=== PATIENT | female | born 1970 | race Caucasian/White ===

== ENCOUNTER 2021-12-23 15:43 | Outpatient (REF) | payer OTHER, SELFPAY ==
[2021-12-24 11:46] LABS: H Pylori Breath Test Negative (Negative)
== END 2021-12-23 15:44 | disposition home or self-care (01) ==
LOC: HO.LNP 15:43
PROVIDERS: Visit Provider Nurse Practitioner Family
DX: E66.9 Obesity, unspecified (principal)
CPT/HCPCS: 83013

== ENCOUNTER 2022-09-02 07:25 | Day surgery (SDC) | payer OTHER, SELFPAY ==
[2022-07-08 08:48] VITALS: BMI 37.2
--- NOTE | 2022-07-12 12:59 | HO.ANESPROP2 ---
HPI - Anesthesia Eval Consult details Narrative: 52yo F for Colonoscopy Semiglutide for obesity, not DM PMFSH Active Problems Active Problems: All Active Problems (Updated 07/08/22 @ 08:48 by Beatris Bolivar RN) Obese (Acute) Hypertension (Acute) Colon cancer screening (Acute) Screening for diabetes mellitus (DM) (Acute) Screening for hypercholesterolemia (Acute) Screening for hypothyroidism (Acute) Annual physical exam (Acute) COVID-19 (Acute) Reactive airway disease (Acute) Past Medical History Medical History (Updated 07/08/22 @ 08:48 by Beatris Bolivar RN) HTN (hypertension) Reactive airway disease Family History Family History (Updated 04/07/22 @ 08:15 by Tom Rivera PA-C) Mother FH: HTN (hypertension) Father No problems noted. 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
--- NOTE | 2022-09-01 13:46 | P.CONAN_ITS ---
Documented by User: Soraya Louis NP 09/01/22 13:46 HPI - Anesthesia Eval Consult details Narrative: 52yo F for Colonoscopy PMFSH Active Problems Active Problems: All Active Problems (Updated 07/08/22 @ 08:48 by Beatris Bolivar RN) Obese (Acute) Hypertension (Acute) Colon cancer screening (Acute) Screening for diabetes mellitus (DM) (Acute) Screening for hypercholesterolemia (Acute) Screening for hypothyroidism (Acute) Annual physical exam (Acute) COVID-19 (Acute) Reactive airway disease (Acute) Past Medical History Medical History (Updated 07/08/22 @ 08:48 by Beatris Bolivar RN) HTN (hypertension) Reactive airway disease Family History Family History (Updated 04/07/22 @ 08:15 by Tom Rivera PA-C) Mother FH: HTN (hypertension) Father No problems noted. Paternal Grandmother Breast cancer Surgical History Surgical History No pertinent past surgical history Social History Social History (Updated 04/07/22 @ 08:15 by Tom Rivera PA-C) Housing: House Alcohol intake: never Patient Tobacco Use Status: Never used Tobacco e-Cigarette/Vaping Use: Never Used Second Hand Smoke Exposure: No Use of substances other than those prescribed or required for medical reasons: No Are you DNR?: No Advance Directives: No Advance Directives Information Provided: Yes Recently lost weight without trying: No Nutrition Risks: No Nutritional Risk service: No Current occupational status: employed 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 Cognitive needs: No Hearing needs: No Vision needs: No Meds Allergies Allergy/AdvReac Type Severity Reaction Status Date / Time No Known Allergies Allergy Verified 08/30/22 14:06 [No Known Allergies*] Exam Exam Date and Time: September 01, 2022 1346 Height,Weight and Vital Signs: Height 5 ft 3 in Weight 95.254 kg Assessment and Plan Assessment Anesthesia Assessment: Chart Reviewed Documented by User: Margarita Cooper MD 09/02/22 08:01 HPI - Anesthesia Eval Consult details Narrative: screening 52yo F for Colonoscopy PMFSH Past Medical History Medical History (Updated 07/08/22 @ 08:48 by Beatris Bolivar RN) HTN (hypertension) Reactive airway disease Family History Family History (Updated 04/07/22 @ 08:15 by Tom Rivera PA-C) Mother FH: HTN (hypertension) Father No problems noted. Paternal Grandmother Breast cancer Family history of problems with anesthesia: No Surgical History Surgical History No pertinent past surgical history History of Problems with Anesthesia: No Social History Social History (Updated 04/07/22 @ 08:15 by Tom Rivera PA-C) Housing: House Alcohol intake: never Patient Tobacco Use Status: Never used Tobacco e-Cigarette/Vaping Use: Never Used Second Hand Smoke Exposure: No Use of substances other than those prescribed or required for medical reasons: No Are you DNR?: No Advance Directives: No Advance Directives Information Provided: Yes Recently lost weight without trying: No Nutrition Risks: No Nutritional Risk service: No Current occupational status: employed 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 Cognitive needs: No Hearing needs: No Vision needs: No Meds Allergies Allergy/AdvReac Type Severity Reaction Status Date / Time No Known Allergies Allergy Verified 08/30/22 14:06 [No Known Allergies*] Exam Airway Mallampati Class: I TM Dist: >3cm Neck ROM: Full Heart: rr Lungs: cta Assessment and Plan Assessment Anesthesia Assessment: Anesthesia Plan Discussed Final Anesthetic Review Family History of Problems with Anesthesia: No History of Problems with Anesthesia: No NPO: Yes ASA Class: II Final Preanesthetic Review: No Changes in Pt Med Stat, Meds/Allgs Chart Reviewed, Consent Obtained/Reviewed and Anes Risks/Benef Reviewed Patient Risk: Low Procedure Risk: Low Anesthetic Plan Anesthetic Plan: MAC: Disposition: Standard PACU
[2022-09-02 07:43] VITALS: BMI 35.2
[2022-09-02 07:59] VITALS: BP 144/83; PULSE 81; RESP 16; TEMP 36.9; O2SAT 99
[2022-09-02 08:06] LABS: Urine Pregnancy NEGATIVE (NEGATIVE)
[2022-09-02 08:07] LABS: UPreg QC Valid YES
[2022-09-02] MEDS: Lactated Ringers 1,000 ML 100 ML IVCONT (08:13)
--- NOTE | 2022-09-02 08:28 | MHC.SHP ---
Pre-Procedural Eval Section A Date of Service: 09/02/22 Section B Chief Complaint: screening Relevant Family History (Specify if Yes): No Relevant Social History: None Present Medications: see Short Stay Collaborative assessment Medical History: Significant History (HTN, asthma, obesity) History of Previous Operations: No relevant previous surgery Allergies: Allergies Allergy/AdvReac Type Severity Reaction Status Date / Time No Known Allergies Allergy Verified 08/30/22 14:06 [No Known Allergies*] Review of Systems Sugical H&P ROS: Negative: Constitution, Cardiovascular, Respiratory, Neurological, Psychiatric, Hem-Onc, Allergic/Immunologic, Gastrointestinal, Genitourinary, Musculoskeletal, Integumentary, Endocrine and Eyes/Ears/Nose/Throat Exam Surgical H&P Exam: Normal: HEENT, Normal: Heart, Normal: Lungs, Normal: Extremities, Normal: Abdomen, Normal: Skin and Normal: Neurological Plan Diagnosis/Plan: Unchanged I have reviewed the history and physical and performed a pertinent physical examination on my patient. No changes have occurred unless specified. Time Spent With Patient Time: Total time managing care of this patient today ____ minutes.
--- NOTE | 2022-09-02 08:29 | W.PM.OPN ---
Operative Note Operative Note Date of Service: 09/02/22 Narrative: Operative Information Procedure Description: Colonoscopy Indication: screening Anesthesia: MAC COLONOSCOPY Instrument: Olympus variable stiffness pediatric scope 190L Colonoscopy Monitoring: Vital signs and clinical assessment, continuous EKG monitoring, Pulse oximetry, Carbon Dioxide monitoring and blood pressure monitoring were done throughout the procedure. Colon withdrawal time was 7 minutes. Procedure: The patient was placed in the left lateral decubitis position and pre-procedure medications were administered. After a digital rectal examination of the ano-rectum, the video colonoscope was inserted into the rectum and advanced through the colon to the cecum/TI. The colonoscope was slowly withdrawn in a retrograde panoramic fashion and the colon mucosa was carefully examined including a retroflexed view of the rectum. Findings and interventions are described below. Procedure Difficulty: easy Findings: Terminal Ileum-normal Cecum:normal Ascending Colon: normal Transverse Colon -normal Descending Colon:normal Sigmoid Colon: mild diverticulosis Rectum: Retroflexion with small internal hemorrhoids, grade I Anorectum - normal Colon preparation: [place] Bowel Preparation Scale Right colon; 2 Transverse colon: 2 Left colon; 3 (0 = Unprepared colon segment with mucosa not seen due to solid stool that cannot be cleared. 1 = Portion of mucosa of the colon segment seen, but other areas of the colon segment not well seen due to staining, residual stool and/or opaque liquid. 2 = Minor amount of residual staining, small fragments of stool and/or opaque liquid, but mucosa of colon segment seen well. 3 = Entire mucosa of colon segment seen well with no residual staining, small fragments of stool or opaque liquid) Impression and Post Procedure Diagnosis: internal hemorrhoids diverticular disease Plan: High fiber diet leaflet Avoid straining at stool, epsom salts and sitz bath, anusol supps or cream Repeat Colonoscopy in 10 years or earlier if clinically indicated Above findings were reviewed with the patient and relevant handouts were provided if indicated.
[2022-09-02 09:06] VITALS: BP 103/61; PULSE 64; RESP 20; TEMP 36.2; O2SAT 98
[2022-09-02 09:21] VITALS: BP 111/70; PULSE 61; RESP 20; TEMP 36.2; O2SAT 99
== END 2022-09-02 10:12 | disposition home or self-care (01) ==
PROVIDERS: Anesthesiology; PCP Physician Assistant; Visit Provider Internal Medicine Gastroenterology
PROC: 0DJD8ZZ Inspection of Lower Intestinal Tract, Via Natural or Artificial Opening Endoscopic (ICD-10-PCS; CPT 45378; principal; 2022-09-02 08:30)
DX: Z12.11 Encounter for screening for malignant neoplasm of colon (principal); K57.30 Diverticulosis of large intestine without perforation or abscess without bleeding; K64.0 First degree hemorrhoids; I10 Essential (primary) hypertension; J45.909 Unspecified asthma, uncomplicated; E66.9 Obesity, unspecified; Z79.899 Other long term (current) drug therapy
CPT/HCPCS: 45378; 81025

== ENCOUNTER → 2022-09-15 11:55 | Outpatient (BNVA) | payer OTHER, SELFPAY | PROVIDERS: PCP Physician Assistant; Visit Provider Nurse Practitioner Family | DX: Z13.89 Encounter for screening for other disorder (principal) ==

== ENCOUNTER 2022-10-12 08:09 | Outpatient (REF) | payer OTHER, SELFPAY ==
--- NOTE | ~2022-10-12 | XR_ITS ---
EXAMINATION: XR HAND, RIGHT CLINICAL INFORMATION: Pain COMPARISON: None TECHNIQUE: 3 views of the hand FINDINGS: No fracture or dislocation. Mild to moderate degenerative changes of the distal interphalangeal joints with borderline loss of joint space. No cortical erosion. Soft tissues are unremarkable. XR/XR hand RT min 3V IMPRESSION: Mild to moderate degenerative changes of the distal interphalangeal joints with borderline loss of joint space.
== END 2022-10-12 08:10 | disposition home or self-care (01) ==
LOC: HO.HOSX 08:09
PROVIDERS: Visit Provider Physician Assistant
DX: G56.01 Carpal tunnel syndrome, right upper limb (principal); M77.11 Lateral epicondylitis, right elbow; R20.0 Anesthesia of skin; R20.2 Paresthesia of skin
CPT/HCPCS: 73130

== ENCOUNTER 2022-11-09 14:00 | Outpatient (RCR) | payer OTHER, SELFPAY ==
--- NOTE | 2022-12-06 16:11 | MHC.OT.DC ---
[address] [phone] F: [phone] Occupational Therapy Discharge Note Patient Name: Deepika Fraire Provider: Tom Rivera Diagnosis: Tendinitis right wrist Date of Surgery: Date of Evaluation: 10/04/22 Date of Discharge: Treatments to Date: 5 Cancellations to Date: No Shows to Date: Discharge Status: Recommend MD Follow-up Discharge Summary: Pt reports less intense elbow pain Pt indep with HEP. Improving distal forearm edema and pain. 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 Pt now on wait and see per pt request. Follow up with Ortho this week. Electronically Signed By: Karina De La Garza OT CHT CLT Reviewed/agree with student documentation: Therapist: Please Sign and return to therapist, thank you for your referral.
== END 2022-12-06 16:12 | disposition home or self-care (01) ==
LOC: HO.OT 14:00
PROVIDERS: PCP Physician Assistant; Visit Provider Physician Assistant
DX: M77.8 Other enthesopathies, not elsewhere classified (principal)
CPT/HCPCS: 97033; 97035; 97110; 97166

== ENCOUNTER 2022-11-10 07:54 | Outpatient (REF) | payer OTHER, SELFPAY ==
--- NOTE | 2022-11-10 07:58 | EMG_ITS ---
Right median and ulnar motor and sensory studies were performed. Right radial sensory study was performed. Paraspinal muscles were tested with a needle. IMPRESSION: Unremarkable study with no evidence of entrapment neuropathy or a proximal lesion. MD CHRIS Guzman/LUCITA / [phone]
== END 2022-11-10 07:55 | disposition home or self-care (01) ==
LOC: HO.NEURO 07:54
PROVIDERS: PCP Physician Assistant; Visit Provider Physician Assistant
DX: R20.0 Anesthesia of skin (principal); R20.2 Paresthesia of skin
CPT/HCPCS: 95886; 95910

== ENCOUNTER → 2022-11-23 09:41 | Outpatient (BNVA) | payer OTHER, SELFPAY | PROVIDERS: PCP Physician Assistant; Visit Provider Orthopaedic Surgery | DX: M77.8 Other enthesopathies, not elsewhere classified (principal) | CPT/HCPCS: 20550; J1100 ==

== ENCOUNTER → 2022-12-29 09:07 | Outpatient (BNVA) | payer OTHER, SELFPAY | PROVIDERS: Visit Provider Physician Assistant ==

== ENCOUNTER 2023-02-06 10:30 | Outpatient (RCR) | payer OTHER, SELFPAY ==
--- NOTE | 2023-02-06 11:22 | MHC.OT.DC ---
[address] [phone] F: [phone] Occupational Therapy Discharge Note Patient Name: Deepika Fraire Provider: Yelena Hanna Diagnosis: Right lateral epicondylitis Right CTS Date of Surgery: Date of Evaluation: 01/12/23 Date of Discharge: 02/06/23 Treatments to Date: 6 Cancellations to Date: 0 No Shows to Date: 0 Discharge Status: Improved Function Independent with HEP Discharge Summary: Pain 2/10 with limiting RUE use, no heavy lifting and currently out of work . 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 Low pain primarily at elbow , and a 1 1/2 and 2 at distal forearm . Weapons Officer strength improving. WNL with use of CFB Pt is motivated and independent with her HEP and joint protection techniques with daily activities I anticipate a successful return to regular duty with a few accommodations such as a dictation option daily as needed, the use of a tower mouse , wrist rest and standing breaks Skilled OT is not needed at this time Electronically Signed By: Karina De La Garza OT CHT CLT Reviewed/agree with student documentation: Therapist: Please Sign and return to therapist, thank you for your referral.
== END 2023-02-06 11:20 | disposition home or self-care (01) ==
LOC: HO.OT 10:30
PROVIDERS: PCP Physician Assistant; Visit Provider Physician Assistant
DX: M77.8 Other enthesopathies, not elsewhere classified (principal); M77.11 Lateral epicondylitis, right elbow; G56.01 Carpal tunnel syndrome, right upper limb
CPT/HCPCS: 97033; 97110; 97140; 97165; 97535

== ENCOUNTER → 2023-04-06 14:28 | Outpatient (BNVA) | payer OTHER, SELFPAY | PROVIDERS: PCP Physician Assistant; Visit Provider Physician Assistant ==

== ENCOUNTER 2023-04-13 07:54 | Outpatient (AMB) | payer OTHER, SELFPAY ==
--- NOTE | 2023-04-13 07:59 | A.OFFPC_ITS ---
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 Accompanied by: Self / Same As Patient Allergies amlodipine Adverse Reaction (Intermediate, Verified 04/13/23 08:14) edema Medication List - Last Reconciled 04/13/23 by Tom Rivera PA-C albuterol sulfate 90 mcg/actuation (Ventolin HFA) 2 puffs inhalation QID 30 days miscellaneous medical supply (Blood Pressure Cuff) As directed Tobacco use date assessed: 09/05/22 Dental Screening Dental Screen Date: 04/13/23 Did you have a dental visit in the last 12 months?: Yes Did you have a dental problem in the last 6 months where you did not have access to dental care?: No Was dental information given to patient?: Patient has dentist HPI Annual Exam HPI Details Patient is a 52-year-old female here today for routine annual physical.? Patient has a past medical history significant for moderate persistent asthma, obesity. Concerns--> has been having some sinus congestion and bilateral ear congestion. Was seen at urgent care was given prednisone. Has been using [id number] antihistamines and nasal sprays with minimal relief. HTN: Pressure today in office elevated. Will increase her hydrochlorothiazide dose to 50 mg daily --. Of note was not able to tolerate am lodipine. .. Obesity: Has establish care with [place] [facility] program and will device in stomach to help her lose weight. Also has joined a local gym and representative personal service to help her lose weight as well. Mammogram:? Done in March 2021 BI-RADS 2- has upcoming appt Colonoscopy: Colonoscopy done in 2022, normal repeat in 10 years .. Vaccine:UTD COVID, up-to-date with tetanus vaccine Declines Flu vaccine . considering Shingles vaccine .. 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 PFSH Medical History HTN (hypertension) Reactive airway disease Surgical History Hx of colonoscopy No pertinent past surgical history Family History Mother FH: HTN (hypertension) Father No problems noted. 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 Micah Gustafson, Giovanna Mcdonald, Prosper Bailey and colleagues, with an educational alf from [employer]. Review of Systems Const Denies body aches, Denies chills, Denies excessive sweating, Denies fatigue, Denies fever(s) and Denies headache(s) Eyes Denies blurry vision ENT Denies dysphagia, Denies vertigo, Denies dizziness, Denies headache(s), Denies hearing loss and Denies tinnitus Card Denies chest pain, Denies chest pain with activity, Denies syncope, Denies irregular heart rhythm and Denies dyspnea Resp Denies chest congestion, Denies cough, Denies hemoptysis, Denies dyspnea and Denies wheezing GI Denies abdominal pain, Denies melena, Denies hematochezia, Denies coffee ground emesis, Denies dysphagia, Denies diarrhea, Denies nausea and Denies vomiting Denies urinary frequency, Denies dysuria, Denies urinary hesitancy and Denies urinary urgency Musc Denies arthralgias, Denies limited range of motion, Denies muscle cramps and Denies muscle weakness Skin/Breast Denies rash and Denies skin ulcer Neuro Denies Abnormal speech present, Denies confusion, Denies vertigo, Denies dizziness, Denies syncope, Denies headache(s), Denies memory loss and Denies seizure-like activity Psych Denies anxiety, Denies confusion, Denies depression, Denies memory loss, Denies panic attacks and Denies paranoia Endo Denies excessive sweating, Denies fatigue, Denies flushing, Denies polydipsia and Denies polyuria Aller/Immun Denies wheezing Physical exam (Primary Care) Vital Signs: Last Vital Signs BP 146/88 H 04/13/23 08:00 BMI Assessment/Plan discussion: High Tobacco/Smoking Status: Tobacco use Status Tobacco use date assessed 09/05/22 04/13/23 08:04 Patient Tobacco Use Status Never used Tobacco 04/13/23 08:04 e-Cigarette/Vaping Use Never Used 04/13/23 08:04 Thrive Assessment: Date of Thrive Assessment Date Thrive assessed 09/05/22 04/13/23 08:04 Const Other: OBESE General: cooperative, comfortable, no acute distress, alert and awake; No confusion Orientation/consciousness: oriented to person, oriented to place, patient oriented x3 and No confusion HENMT Head: Yes normocephalic Ears: external ears normal and TM's normal bilaterally Face and sinus: No sinus tenderness Mouth: Normal oral and palatal mucosa present and tongue normal Teeth and gingiva: dentition normal and gingiva normal Throat: Yes posterior oropharynx normal, Yes tonsils normal and Yes uvula midline Eyes Conjunctivae: conjunctivae normal Sclerae: sclerae normal Pupils: Equal, round and reactive pupils present EOM: EOMs intact bilaterally Direct Ophthalmoscopy: No no photophobia Neck Neck: Yes no lymphadenopathy, No tender and Yes no JVD Thyroid: Thyroid normal Carotids: no bruits Chest Chest palpation & inspection: no tenderness Resp Effort & Inspection: normal respiratory effort, no audible wheezes, not labored and no stridor Auscultation: no crackles, no rales, no rhonchi and no wheezes Cardio Jugular venous distension: no JVD Rate: regular rate, not bradycardic and not tachycardic Rhythm: regular rhythm Bruits: no carotid bruits Peripheral pulses: Peripheral pulses 2+ throughout GI Inspection: Yes normal to inspection, No abdominal wall ecchymosis and No visible herniation Palpation (GI): Soft to palpation, nontender, no guarding, not rigid and No hepatosplenomegaly present Auscultation: normoactive bowel sounds General: Yes no CVA tenderness Back/Spine/Pelvis Back: no CVA tenderness and No back tenderness Cervical Spine: cervical ROM normal Thoracic/Lumbar Spine: thoracic and lumbar spine normal to inspection, straight leg raise negative bilaterally, No thoraco-lumbar ROM limited and No lumbar spinal tenderness Skin Lesions: no lesions Rashes: no rashes Wounds: no wounds Neuro General: oriented to person, oriented to place, patient oriented x3, CN's II-XI intact bilaterally and No confusion Cranial nerves: Yes Equal, round and reactive pupils present and Yes Normal accommodation reflex present Cognition (Neuro): normal cognition Speech: No Abnormal speech present Gait exam (Neuro): Normal gait present Motor exam (neuro): 5/5 motor strength present throughout Extrem Right upper extremity: full ROM; no cyanosis Left upper extremity: full ROM; no cyanosis Right lower extremity: no edema Left lower extremity: no edema Psych Appearance: grossly normal Mental Status: mental status grossly normal Affect: normal affect Attitude: cooperative Thought process: Normal thought process present Office Procedures Flu Questionnaire Does the patient have a severe egg allergy?: No Immunizations flu vacc [id number] 6mos up(PF) 60 mcg(15 mcgx4)/0.5 mL IM syringe Performing Provider: Tom Rivera PA-C [facility] Documented (not given) by: ONUR Mcneill on 04/13/23 08:04 Reason Not Given: Patient Refused Assessment and Plan Assessment & Plan (1) Annual physical exam: Code(s): Z00.00 - Encounter for general adult medical examination without abnormal findings (2) Obese: Code(s): E66.9 - Obesity, unspecified Qualifiers: Obesity type: due to excess calories Obesity classification: adult class 2 (BMI 35 - 39.9) Serious obesity comorbidity presence: without serious comorbidity Body mass index: BMI 37.0-37.9 Qualified Code(s): E66.09 - Other obesity due to excess calories; Z68.37 - Body mass index [BMI] 37.0-37.9, adult Plan: Patient does understand her BMI is over 30 and has been working diligently on trying to reduce her weight. She has now follow-up with the [place] weight [facility] program and is anticipating a balloon device upper lose stool weight. She will also be joining a gym in a representative personal service to get more physically active. (3) Hypertension: Code(s): I10 - Essential (primary) hypertension Qualifiers: Hypertension type: primary hypertension Qualified Code(s): I10 - Essential (primary) hypertension Plan: Blood pressure elevated today in office. She would like to increase her dose of hydrochlorothiazide 50 mg. Patient denies any headaches or chest discomforts. Goal blood pressure to be below 140/90 (4) Sinusitis: Code(s): J32.9 - Chronic sinusitis, unspecified Qualifiers: Sinusitis location: frontal Chronicity: subacute Qualified Code(s): J01.10 - Acute frontal sinusitis, unspecified Plan: As per HPI has been suffering with acute sinusitis and bilateral ear congestion. Has been trying [id number] antihistamines and nasal sprays without much relief. Will supply patient with antibiotics to hold onto and if symptoms worsen she can use. Orders: Orders Influenza [id number] Immunization Today Z23 - Encounter for immunization Medications: New amoxicillin 500 mg PO Q8H 5 days 15 caps 0RF J32.9 - Chronic sinusitis, unspecified hydrochlorothiazide 50 mg PO DAILY 30 days 30 tabs 3RF I10 - Essential (primary) hypertension Coding Level of Care Code Est Pt Prev Care 40-64y(92152) Diagnoses Annual physical exam Z00.00 Class 2 obesity due to excess calories without serious comorbidity with body mass index (BMI) of 37.0 to 37.9 in adult E66.09; Z68.37 Obesity type: due to excess calories Obesity classification: adult class 2 (BMI 35 - 39.9) Serious obesity comorbidity presence: without serious comorbidity Body mass index: BMI 37.0-37.9 Primary hypertension I10 Hypertension type: primary hypertension Subacute frontal sinusitis J01.10 Sinusitis location: frontal Chronicity: subacute
[2023-04-13 08:00] VITALS: BP 146/88
== END 2023-04-13 08:40 | disposition home or self-care (01) ==
PROVIDERS: Visit Provider Physician Assistant
DX: Z00.00 Encounter for general adult medical examination without abnormal findings (principal); E66.09 Other obesity due to excess calories; Z68.37 Body mass index [BMI] 37.0-37.9, adult; I10 Essential (primary) hypertension; J01.10 Acute frontal sinusitis, unspecified
CPT/HCPCS: 99396

== ENCOUNTER 2023-04-25 07:49 | Outpatient (AMB) | payer OTHER, SELFPAY ==
--- NOTE | 2023-04-25 08:04 | MHC.OFFVISWM ---
Intake Intake Visit Reasons: telehealth gastric ballon Allergies amlodipine Adverse Reaction (Intermediate, Verified 04/25/23 08:06) edema HPI HPI Comments History of Present Illness Details Intake Template This is a 53 year old woman who is here to start SWL program with SWL classes, possible Orbera Balloon. Her goal is healthier life due to concerns regarding obesity and arthritis.? She reports first being concerned about her weight about 8-10 years after her and noted gradual weight gain to now, her heaviest weight.? She has tried multiple methods of weight loss including Atkins diet, fad diets, OTC supplements, all without permanent results. She lives with with her partner and 2 adult children in college. 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 She then reports that she is exhausted on and Monday doing some self care but is not currently exercising. She notes that she has hired a hospice team lead and that exercise will be added in the future. Intolerance of dairy/lactose:?? Y??the patient uses almond milk and is currently using a plant based protein supplement. Gluten Sensitivity:? Unk: Patient reports symptoms of bloating but no diarrhea? Celiac? Not documented PMH: Patient denies any history, but per EMR, she has HTN, asthma/reactive airway disease PSH: Denied She wakes at:??0500?bed at: 1130pm Breakfast:?Kos plant protein shake, 20g? snack: denies Lunch:???Light, protein & veg? snack: denies Dinner:?protein & veg? snack: After dinner snacking including cookies are problematic After dinner: Carbohydrate latent snacks including popcorn, chips, cookies Other snacks: Liquids: Drinks herbal tea, water and electrolyte water occasional green tea Alcohol intake: Denied? nicotine: ?Denies?? marijuana:??Denied??? 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 PFSH Medical History HTN (hypertension) Reactive airway disease Surgical History Hx of colonoscopy No pertinent past surgical history Family History Mother FH: HTN (hypertension) Father No problems noted. 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 Current occupational exposures/hazards: No Cognitive needs: No Hearing needs: No Vision needs: No Review of Systems Const All systems reviewed & are unremarkable except as noted in HPI and below Physical Exam Tele visit conducted Results Reviewed Results Reviewed: See orders Assessment & Plan Assessment & Plan (1) BMI 37.0-37.9, adult: Code(s): Z68.37 - Body mass index [BMI] 37.0-37.9, adult (2) Hypertension: Code(s): I10 - Essential (primary) hypertension Qualifiers: Hypertension type: primary hypertension Qualified Code(s): I10 - Essential (primary) hypertension (3) Reactive airway disease: Code(s): J45.909 - Unspecified asthma, uncomplicated Qualifiers: Asthma severity: mild Asthma persistence: intermittent Asthma complication type: uncomplicated Qualified Code(s): J45.20 - Mild intermittent asthma, uncomplicated Plan The importance of healthy lifestyle changes including increased activity/exercise to burn 300-350 kcal per session and 2000 kcal per week was discussed. The importance of a healthy diet and minimizing empty calories of carbohydrates and fats was discussed. Options regard medical management, gastric balloon and laparoscopic bariatric surgery were discussed. The pros and cons of each were along with the inherent risks of weight regain if maladaptive eating and sedentary behavior occurs were discussed. The importance of following dietary recommendations to optimize weight loss was discussed. Rare complications regarding gastric balloon including early intolerance and need to remove, perforation or endoscopic injury, bleeding, nausea or vomiting for 1-2 weeks after the procedure and the need to remove the balloon at 6 months were discussed. The patient seemed understand. Rare complications including hyperinflation, gastric injury and were discussed. At this time, the patient would like to enter the balloon workup and I will see her back in 3 weeks to review studies and labs. She noted that she would prefer to stick with her current protein supplement, but was recommended to use celebrate rebuild and requested a meal plan be provided. Preop Bariatric Plan 1.?? Nutritional counseling:?Be sure to careful read the number of scoops per shake if you are using powdered mix.? Premier premixed or powdered shakes & the protein bar of your choice.? Remember to be sure the bar has twice as much protein as sugar/carbs! You are free to choose flavors, the hand-out is a guide re: protein supplements.? Start with? Celebrate Rebuild Protein shakes & bars First shake at 1.5 scoops in 12 oz unsweetened almond milk 7-9am Second shake, 1.5 scoops in 12 oz unsweetened almond milk at Noon-2pm 1 protein bar ?bars at 3-4pm. Dinner at 4pm (8 forks of protein and 8 forks of salad/vegetables). Meal to include lean meat (beef, fish, pork, turkey, chicken), cooked vegetables or a salad with olive oil and/or fruits (berries, pears, apples, kiwi). Avoid breads, potatoes, starches, rice, pasta, desserts.? The sooner you decrease carbohydrates & excess fats, the sooner you will reach your goal. 2.?? You must closely monitor your blood glucose/pressure at least twice a day. After dinner snacking should be protein bar only if needed. Try to drink 64 oz of water daily and avoid soda and juices. ?2. Each shake would be drunk slowly in a period of 2 hours. ?3. Cut each bar in 4 pieces and eat each piece in 30 min to make each bar last 2 hours. ?4. I emphasized the importance of measuring accurately the food portion and measure it carefully when serving the food on the plate ?5. The meal portions include 10 full-size forks of meat and 10 full-size forks of salad. You should always eat the meat portion but you can skip the forks of salad/vegetables and replace with a fruit if you like. The less you do it the better weight loss will be. ?6. One full-size fork is what can be scooped on the fork without falling aside and not what can be bit with the fork. Use regular forks like those you find in a typical restaurant. ?7.? Please send me weight measurements as soon as possible and then once a week. Always include your diet and exercise plan. Alternatively come weekly at the office for weight checks and send me the measurements. ?8. Exercise counseling:? Begin by watching a stretching for beginner?s video.? Start slowly and begin to stretch your muscles.? You should do this before and after each exercise session to prevent injury.? Please use the exercise equipment at your building. Start elliptical with a resistance of 2. Increase resistance by 1 every 3 min to your most comfortable resistance with a max resistance of 8.? Reduce the resistance by 1 every 3 minutes back down to 2 and repeat cycles for 300 calories. Alternatively, start treadmill with a speed of 3.0 and incline of 0, increasing incline by 1 every 3 minutes to the highest comfortable level (max 6 for now) then decrease in the same fashion.? Repeat process to a goal of 300 calories.? Goal of 2000 calories burned or more weekly.? You may also consider use of the stationary bike.? The easiest would be to choose the fat-burn or interval training program on the machine and do this until you reach the 300 calorie goal.? Alternatively, you can manually adjust the resistance in a similar fashion as mentioned above, (resistance of 2-8 with a goal speed of 12 mph).?Tracking calories is essential. 9. Alternatively, start walking outside daily, tracking calories with a goal of 300 calories per day, daily. If [id number] is needed, you can start there, but the goal is DAILY. You can download the holly?[employer]?which can track your time, distance and calories while walking outside.? You press start in the holly when you start and then stop when you are finished. ? 10.? It is important to avoid and for at least 18 months postoperatively and it has been discussed at the information session 11. Please get labs, EKG and chest X-Ray within 1 week. 12. Discussed and answered all questions regarding?obtained consent to participate in the [facility]?Registry. 13. Please follow the diet plan exactly, without any change.? If you do not like something about the plan or you feel hungry, you need to communicate with me so I can help you revise the plan.? You should not change the plan yourself. 14. Goal is to lose 1.5-2.0 lbs/week 15. Goal is to lose 10% of your weight before procedure, which is about 22 lbs. Ultimate weight goal: 200 lbs before procedure.? Remember that you may need to lose more weight to qualify if your abdominal ultrasound shows your liver or spleen are enlarged or if your upper GI shows a hiatal hernia. IF YOU EXPERIENCE PAIN, SEVERE SHORTNESS OF BREATH, DIZZINESS OR LIGHTHEADEDNESS, OR SIGNIFICANT CONSTIPATION OR DIARRHEA, (DIARRRHEA CAN OCCUR FROM SOME ARTIFICIAL SWEETENERS) PLEASE NOTIFY THE OFFICE! If you have diabetes, you will need to follow your blood sugars at least twice a day (morning & evening, or as needed if you are shaky/sweaty or feel hypoglycemic).? Please discuss with Dr. Suarez.? Text Dr. Suarez at [phone] If you have hypertension/high blood pressure, you will need to monitor your blood pressure regarding adjusting medications.? Please discuss with Dr. Suarez.? We encourage patients to track calories burned while exercising as this is a more proven method verses ?steps? or ?miles walked? apps.? Patients who have dedicated exercise time at regular intervals throughout the week have greater weight loss then patients who hope that being active at work or through their day will result in weight loss.? Your body has adapted to your current life & you need to add regular exercise, just like you added a healthier diet for your health goals. Resistance training (weight lifting) is helpful to reach your goal, strengthen your bones or if your weight loss has stalled (reached a plateau) by both burning calories & adding muscle, which increases your metabolism.? Chest, back & thigh muscles can be exercised at home or at a gym.? Please discuss your goals with Dr. Suarez or a qualified software controls engineer at your local gym. YouTube options: ?Sit to Be Fit, Daily Burn, Lillian, Walk away the pounds, [employer] Websites: Sit and Be Fit? https://www.sitandbefit.org/ Go For Life https://ui5jjyt.zbigniew.nih.gov/ Orders: Orders Lipid Panel Today I10 - Essential (primary) hypertension, J45.909 - Unspecified asthma, uncomplicated, Z68.37 - Body mass index [BMI] 37.0-37.9, adult IRON PROFILE Today I10 - Essential (primary) hypertension, J45.909 - Unspecified asthma, uncomplicated, Z68.37 - Body mass index [BMI] 37.0-37.9, adult C Reactive Protein Today I10 - Essential (primary) hypertension, J45.909 - Unspecified asthma, uncomplicated, Z68.37 - Body mass index [BMI] 37.0-37.9, adult Ferritin Today I10 - Essential (primary) hypertension, J45.909 - Unspecified asthma, uncomplicated, Z68.37 - Body mass index [BMI] 37.0-37.9, adult PTHI Today I10 - Essential (primary) hypertension, J45.909 - Unspecified asthma, uncomplicated, Z68.37 - Body mass index [BMI] 37.0-37.9, adult TSH reflex Free T4 Today I10 - Essential (primary) hypertension, J45.909 - Unspecified asthma, uncomplicated, Z68.37 - Body mass index [BMI] 37.0-37.9, adult H Pylori Breath Test Today I10 - Essential (primary) hypertension, J45.909 - Unspecified asthma, uncomplicated, Z68.37 - Body mass index [BMI] 37.0-37.9, adult Hemoglobin A1c Today I10 - Essential (primary) hypertension, J45.909 - Unspecified asthma, uncomplicated, Z68.37 - Body mass index [BMI] 37.0-37.9, adult XR chest 2V Today I10 - Essential (primary) hypertension, J45.909 - Unspecified asthma, uncomplicated, Z68.37 - Body mass index [BMI] 37.0-37.9, adult Insulin Today I10 - Essential (primary) hypertension, J45.909 - Unspecified asthma, uncomplicated, Z68.37 - Body mass index [BMI] 37.0-37.9, adult Complete Blood Count Auto Diff Today I10 - Essential (primary) hypertension, J45.909 - Unspecified asthma, uncomplicated, Z68.37 - Body mass index [BMI] 37.0-37.9, adult Vitamin B12 and Folate Today I10 - Essential (primary) hypertension, J45.909 - Unspecified asthma, uncomplicated, Z68.37 - Body mass index [BMI] 37.0-37.9, adult Zinc Today I10 - Essential (primary) hypertension, J45.909 - Unspecified asthma, uncomplicated, Z68.37 - Body mass index [BMI] 37.0-37.9, adult Comprehensive Met. Panel Today I10 - Essential (primary) hypertension, J45.909 - Unspecified asthma, uncomplicated, Z68.37 - Body mass index [BMI] 37.0-37.9, adult Vitamin B1 Today I10 - Essential (primary) hypertension, J45.909 - Unspecified asthma, uncomplicated, Z68.37 - Body mass index [BMI] 37.0-37.9, adult Vitamin A Today I10 - Essential (primary) hypertension, J45.909 - Unspecified asthma, uncomplicated, Z68.37 - Body mass index [BMI] 37.0-37.9, adult Vitamin D 25-OH Total Today I10 - Essential (primary) hypertension, J45.909 - Unspecified asthma, uncomplicated, Z68.37 - Body mass index [BMI] 37.0-37.9, adult US abdomen comp w elastography Today I10 - Essential (primary) hypertension, J45.909 - Unspecified asthma, uncomplicated, Z68.37 - Body mass index [BMI] 37.0-37.9, adult ECG 12 lead EKG Today I10 - Essential (primary) hypertension, J45.909 - Unspecified asthma, uncomplicated, Z68.37 - Body mass index [BMI] 37.0-37.9, adult FL upper GI w air Today I10 - Essential (primary) hypertension, J45.909 - Unspecified asthma, uncomplicated, Z68.37 - Body mass index [BMI] 37.0-37.9, adult Referrals Nutrition/Dietitian Referral I10 - Essential (primary) hypertension, J45.909 - Unspecified asthma, uncomplicated, Z68.37 - Body mass index [BMI] 37.0-37.9, adult Behavioral Health Referral I10 - Essential (primary) hypertension, J45.909 - Unspecified asthma, uncomplicated, Z68.37 - Body mass index [BMI] 37.0-37.9, adult Telehealth Telehealth Location of provider rendering services: practice address Location of patient: address on file Patient Identification confirmed using: Name, : Yes Telehealth method: voice only Patient verbally consented to treatment: Yes Patient verbally consented to billing insurance company: Yes Patient informed of any privacy concerns related to visit: Yes Minutes spent on Phone/Video with Pt.: 47 Coding Level of Care Code Tele [facility] Pt Level 4 (07602) Diagnoses BMI 37.0-37.9, adult Z68.37 Primary hypertension I10 Hypertension type: primary hypertension Mild intermittent reactive airway disease without complication J45.20 Asthma severity: mild Asthma persistence: intermittent Asthma complication type: uncomplicated
== END 2023-04-25 14:46 | disposition home or self-care (01) ==
LOC: HO.HBS 07:49
PROVIDERS: PCP Physician Assistant; Visit Provider Surgery
DX: E66.09 Other obesity due to excess calories (principal); Z68.37 Body mass index [BMI] 37.0-37.9, adult; I10 Essential (primary) hypertension; J45.20 Mild intermittent asthma, uncomplicated
CPT/HCPCS: 99443

== ENCOUNTER → 2023-04-25 07:49 | Outpatient (BNVA) | payer OTHER, SELFPAY | PROVIDERS: PCP Physician Assistant; Visit Provider Surgery ==

== ENCOUNTER 2023-06-08 08:25 | Outpatient (REF) | payer OTHER, SELFPAY ==
--- NOTE | ~2023-06-08 | US_ITS ---
EXAMINATION: US COMPLETE ABDOMEN WITH LIVER ELASTOGRAPHY CLINICAL INFORMATION: Body mass index of between 37.0 and 37.9. COMPARISON: None available. TECHNIQUE: Real-time imaging of the abdominal viscera. Noninvasive ultrasound liver fibrosis assessment is performed using Kristin ElastPQ point quantification shear wave elastography (2D-SWE) with a C5-2 MHz transducer. Multiple elastography samples are obtained. FINDINGS: PANCREAS: Normal. The visualized pancreatic head and body are normal in appearance. The remainder of the pancreas is obscured from visualization by the overlying bowel gas. ABDOMINAL AORTA: The proximal, middle, and distal aortic segments are normal in caliber. INFERIOR VENA CAVA: Visualized portions are normal. LIVER: Normal. The liver demonstrates normal size, contour and mildly increased in echogenicity. No focal lesion or intrahepatic biliary duct dilatation. The right lobe measures 13.2 cm in length. The left lobe measures 8.3 cm in length. Portal flow is towards the liver (hepatopetal). Shear wave liver elastography median stiffness is 0.97 m/s (reference: normal median stiffness is 1.3 m/s or less). IQR/median stiffness to assess sampling precision is 0.28 (reference: good quality data set is IQR/median stiffness of 0.15 or less). GALLBLADDER: Normal. The gallbladder is physiologically distended without evidence of stones, sludge, polyps, wall thickening or pericholecystic fluid. COMMON BILE DUCT: Normal in caliber measuring 0.3 cm in diameter. RIGHT KIDNEY: Normal. No hydronephrosis. No renal calculi or focal parenchymal lesions. The kidney measures 11.9 cm in maximum dimension. LEFT KIDNEY: Normal. No hydronephrosis. No renal calculi or focal parenchymal lesions. The kidney measures 11.1 cm in maximum dimension. SPLEEN: Normal. The spleen measures 8.7 cm in maximum dimension. FREE FLUID: None. US/US abdomen comp w elastography IMPRESSION: 1. There is mild generalized increase in hepatic echotexture, consistent with fatty infiltration or hepatocellular disease. Please correlate clinically. No focal hepatic mass or intrahepatic biliary dilatation is seen. 2. Liver elastography: Measurements are consistent with a high probability of normal liver stiffness. REFERENCE: Society of Radiologists in Ultrasound Liver Stiffness Thresholds (2020): LIVER STIFFNESS THRESHOLDS: *Liver Stiffness equal or less than 1.3 m/s: High probability of being normal. *Liver Stiffness less than 1.7 m/s: In the absence of other known clinical signs, rules out compensated advanced chronic liver disease. *Liver Stiffness 1.7-2.1 m/s: Suggestive of compensated advanced chronic liver disease but need further test for confirmation. *Liver Stiffness over 2.1 m/s: Rules in compensated advanced chronic liver disease. *Liver Stiffness over 2.4 m/s: Suggestive of clinically significant portal hypertension. QUALITY OF DATA SET: *IQR/Median value equal or less than 0.15 implies a quality data set. *IQR/Median value over 0.15 implies a poor quality data set. SIGNIFICANT CHANGE FROM PRIOR EXAM: Significant change if liver stiffness measurement is 10% or greater from prior exam. OTHER CONSIDERATIONS: The stage of liver fibrosis may be overestimated in the setting of acute hepatitis, liver inflammation, elevated liver function tests, hepatic vascular congestion, obstructive cholestasis, non-fasting state, and infiltrative diseases such as amyloidosis and lymphoma. In some patients with NAFLD, the liver stiffness thresholds for compensated advanced chronic liver disease may be lower. In causes other than viral hepatitis and NAFLD, liver stiffness thresholds are not well established.
== END 2023-06-08 08:26 | disposition home or self-care (01) ==
LOC: HO.US 08:25
PROVIDERS: Visit Provider Surgery
DX: J45.909 Unspecified asthma, uncomplicated (principal); I10 Essential (primary) hypertension
CPT/HCPCS: 76705; 76981